=== PATIENT | female | born 1980 ===

== ENCOUNTER → 2018-10-28 | Outpatient (CLI) | payer SELFPAY ==
[2018-10-28 19:20] LABS: Source, Urine Clean Catch
[2018-10-28 19:38] LABS: Bilirubin, Urine Neg (Neg); Blood, Urine 1+ (Neg); Glucose Qualitative, Urine Neg (Neg); Ketones, Urine 1+ (Neg); Leukocyte Esterase, Urine 1+ (Neg); Nitrite, Urine Pos (Neg); Protein, Urine 1+ (Neg); Urobilinogen, Urine NORM (Normal); pH, Urine 6.5 (5.0-8.0)
[2018-10-28 19:48] LABS: Appearance, Urine Cloudy (Clear); Color, Urine Yellow (P-Yellow)
[2018-10-28 19:49] LABS: Amorphous Light ({null, 0-Heavy}); Bacteria Many /hpf; Calcium Oxalate Crystals Few /hpf; Mucus Light ({null, 0-Heavy}); Red Blood Cells, Urine 0-2 /hpf (0-2); Squamous Epithelial Cells Mod /hpf (Few)
== END | disposition home or self-care (01) ==
LOC: LAB SHORT 15:57 → LAB 15:57
PROVIDERS: Obstetrics & Gynecology
DX: Z34.81 Encounter for supervision of other normal pregnancy, first trimester (principal)
CPT/HCPCS: 81001; 87086

== ENCOUNTER → 2018-11-04 | Outpatient (CLI) | payer SELFPAY ==
[2018-11-06 15:07] LABS: HPV 16 Positive (Negative); HPV 18 Negative (Negative); HPV OTHER HR TYPES Negative (Negative)
== END | disposition home or self-care (01) ==
LOC: LAB SHORT 18:03 → LAB 18:03
PROVIDERS: Obstetrics & Gynecology
DX: O09.529 Supervision of elderly multigravida, unspecified trimester (principal)
CPT/HCPCS: 87624; 87625; G0123

== ENCOUNTER → 2019-04-09 | Outpatient (CLI) | payer OTHER | END | disposition home or self-care (01) | LOC: LAB 16:30 → LAB SHORT 16:30 | DX: Z34.93 Encounter for supervision of normal pregnancy, unspecified, third trimester (principal) | CPT/HCPCS: 87081; 87653 ==

== ENCOUNTER 2019-05-06 15:00 | Inpatient (IN) | payer OTHER ==
[~2019-05-06] VITALS: Ht 154.9 cm; Wt 68.4 kg
[2019-05-10] MEDS ORDERED: PRENATAL TABLE1 EAC2 PO (14:04)
[2019-05-10 14:32] LABS: BASOPHILS ABSOLUTE AUTO 0.02 K/mm3 (0.00-0.23); BASOPHILS PERCENT AUTO 0 % (0-2); EOSINOPHILS PERCENT AUTO 1 % (0-6); Hematocrit 31.3 % (33.0-51.0); Hemoglobin 9.8 g/dL (11.5-16.0); IMMATURE GRAN ABSOLUTE AUTO 0.08 K/mm3 (0.00-0.10); IMMATURE GRAN PERCENT AUTO 1 % (0-1); LYMPHOCYTES ABSOLUTE AUTO 1.43 K/mm3 (0.84-5.20); LYMPHOCYTES PERCENT AUTO 14 % (21-46); MONOCYTES ABSOLUTE AUTO 0.92 K/mm3 (0.16-1.47); MONOCYTES PERCENT AUTO 9 % (4-13); Mean Corpuscular HGB 28.6 pg (26.0-34.0); Mean Corpuscular HGB Conc 31.3 g/dL (31.5-36.5); Mean Corpuscular Volume 91 fL (80-100); Mean Platelet Volume 11.4 fL (9.1-12.4); NEUTROPHILS ABSOLUTE AUTO 7.42 K/mm3 (1.96-9.15); NEUTROPHILS PERCENT AUTO 75 % (41-73); Platelet Count 316 K/mm3 (150-400); RDW Coefficient Variation 15.6 % (11.7-14.2); RDW Standard Deviation 51.4 fL (35.1-46.3); Red Blood Cell Count 3.43 M/mm3 (3.80-5.20); White Blood Cell Count 9.97 K/mm3 (4.00-11.30)
--- NOTE | 2019-05-11 07:16 | NUR ---
PATIENT PREPPED FOR REPEAT C/S. REPORT GIVEN TO MELIZA MCGEE.
--- NOTE | 2019-05-11 10:00 | NUR ---
FUNDAL CHECKS DONE EVERY 15 MINUTES X 5 . FUNDUS FIRM MIDLINE AT [facility] W/SMALL [place].
--- NOTE | 2019-05-11 19:45 | NUR ---
PATIENT REFUSED FUNDAL MASSAGE, EDUDCATED ON THE IMPORTANCE OF FUNDAL MASSAGE, PATIENT STILL DECLINES
[2019-05-12 06:06] LABS: Hematocrit 26.7 % (33.0-51.0); Hemoglobin 8.5 g/dL (11.5-16.0); Mean Corpuscular HGB 28.8 pg (26.0-34.0); Mean Corpuscular HGB Conc 31.8 g/dL (31.5-36.5); Mean Corpuscular Volume 91 fL (80-100); Mean Platelet Volume 11.5 fL (9.1-12.4); Platelet Count 273 K/mm3 (150-400); RDW Coefficient Variation 15.6 % (11.7-14.2); RDW Standard Deviation 51.3 fL (35.1-46.3); Red Blood Cell Count 2.95 M/mm3 (3.80-5.20); White Blood Cell Count 15.67 K/mm3 (4.00-11.30)
--- NOTE | 2019-05-12 18:56 | NUR ---
PT C/O 09/03 INCISIONAL PAIN AT 162 AFTER GOING FOR A WALK TO THE [place]. PT REQUESTS SOMETHING OTHER THAN THE PERCOCET FOR PAIN AT THIS TIME STATING THAT THE PERCOCET UPSETS HER STOMACH. PT GIVEN MOTRIN AT 162. AT TIME OF PAIN REASSESSMENT 1853 PAIN STATES PAIN LEVEL IS UNCHANGED AT 09/03. THIS KIER HAND ASKED IF PT WOULD LIKE SOMETHING ELSE FOR PAIN CONTROL AT THIS TIME, PT STATES "NO NOT YET, I'M GOING TO TAKE A SHOWER." PT GIVEN FRESH TOWELS AND SOAP FOR SHOWER.
--- NOTE | 2019-05-13 09:33 | NUR ---
PT REPORTS SHE REMOVED HER IV AT 0300 THIS AM. STATES "THE NURSE TOLD ME I COULDN'T GET ANY MORE INJECTIONS SO I JUST TOOK IT OUT."
[2019-05-13] MEDS ORDERED: IBUP800 PO (09:44)
[2019-05-13] MEDS ORDERED: PARO20 PO (09:44)
[2019-05-13] MEDS ORDERED: Percocet 5-3251 EACH PO (09:45)
--- NOTE | 2019-05-13 10:36 | NUR ---
PT DISCHARGED HOME TO THE CARE OF A FRIEND
== END 2019-05-13 10:40 | disposition home or self-care (01) | DRG 785 ==
LOC: BC 05-11 05:16
PROVIDERS: ADMIT Obstetrics & Gynecology
PROC: 10D00Z1 Extraction of Products of Conception, Low, Open Approach (ICD-10-PCS; principal; 2019-05-11 07:30)
PROC: 0UT70ZZ Resection of Bilateral Fallopian Tubes, Open Approach (ICD-10-PCS; 2019-05-11 07:30)
DX: O34.29 Maternal care due to uterine scar from other previous surgery (principal); O34.211 Maternal care for low transverse scar from previous cesarean delivery; Z3A.39 39 weeks gestation of pregnancy; Z37.0 Single live birth; O34.13 Maternal care for benign tumor of corpus uteri, third trimester; D25.9 Leiomyoma of uterus, unspecified; Z30.2 Encounter for sterilization; Z86.59 Personal history of other mental and behavioral disorders
CPT/HCPCS: 36415; 85025; 85027; 86850; 86900; 86901; 88302; 90686; J0690; J1885; J2405; J2590; J2765; J3010; J7120